=== PATIENT | male | born 1965 | race Caucasian/White ===

== ENCOUNTER → 2022-09-10 | Day surgery (SDC) | payer BC ==
[~2022-09-10] MED LIST: AMLODIPINE BESY10 MG PO; BYSTOLIC2.5 MG PO; FLOMAX0.4 MG PO; HYDROCODONE PO; IRBESARTAN150 MG PO; MIDAZOLAM HCL 2 MG/2 ML VIAL ONE; PRAVASTATIN SOD40 MG PO; REVATIO20 MG PO
[2022-09-10 13:15] VITALS: BP 112/78
== END | disposition home or self-care (01) ==
LOC: OR 08-10 11:34
PROVIDERS: ATTEND Internal Medicine Gastroenterology
DX: Z12.11 Encounter for screening for malignant neoplasm of colon (principal); D12.3 Benign neoplasm of transverse colon; D12.8 Benign neoplasm of rectum; K63.89 Other specified diseases of intestine; K57.30 Diverticulosis of large intestine without perforation or abscess without bleeding; K64.8 Other hemorrhoids; G47.33 Obstructive sleep apnea (adult) (pediatric); R19.7 Diarrhea, unspecified; K21.9 Gastro-esophageal reflux disease without esophagitis; I10 Essential (primary) hypertension; E78.5 Hyperlipidemia, unspecified; M54.9 Dorsalgia, unspecified; M54.2 Cervicalgia; Z01.810 Encounter for preprocedural cardiovascular examination; Z79.899 Other long term (current) drug therapy; Z68.31 Body mass index [BMI] 31.0-31.9, adult
CPT/HCPCS: 45380; 45385; 93005; J2250; 45378